=== PATIENT | male | born 1945 | race Caucasian/White ===

== ENCOUNTER → 2018-01-24 | Outpatient (CLI) | payer OTHER, MEDICARE ==
[~2018-01-24] MED LIST: ACYCLOVIR 800800 MG PO; ALLOPURINOL 30300 M1 PO; ASPIR 8181 MG PO; ATORVASTATIN CA40 MG PO; BACTRIM DS TAB1 EAC1 PO; CARDIZEM CD240 MG PO; CENTRUM SILVER1 EAC2 PO; CHEMOTHERAPY; DIFLUCAN200 MG PO; DILTIAZEM 24HR180 M2 PO; FISH OIL 1,001000 M2 PO; JUICE PLUS PO; LEVAQUIN 750 M750 MG PO; MOBIC15 MG PO; ONDANSETRON HCL8 M2 PO; TOPROL XL100 MG PO; XARELTO15 MG
[2018-01-24 11:16] VITALS: BP 114/63; BP 117/60
== END ==
LOC: OPONC 07:50
DX: C91.40 Hairy cell leukemia not having achieved remission (principal); D69.6 Thrombocytopenia, unspecified
CPT/HCPCS: 91030